=== PATIENT | female | born 2000 | race Two or more races ===

== ENCOUNTER 2022-10-09 15:09 | Emergency (ER) | payer BC ==
[~2022-10-09] VITALS: Ht 165.1 cm; Wt 73.4 kg
[2022-10-09 16:07] LABS: Basophils # (auto) 0.1 10 ^3/uL (0-0.2); Basophils % (auto) 0.5 % (0.0-2.0); Eosinophils # (auto) 0 10 ^3/uL (0-0.8); Eosinophils % (auto) 0.3 % (0.0-7.0); Hematocrit 43.5 % (36.0-46.0); Hemoglobin 14.4 g/dL (12.2-16.2); Lymphocytes # (auto) 2.2 10 ^3/uL (0.4-5.4); Lymphocytes % (auto) 17.4 % (10.0-50.0); Mean Corpuscular Hemoglobin 27.4 pg (28.0-32.0); Mean Corpuscular Hgb Conc. 33.1 g/dL (32.0-36.0); Mean Corpuscular Volume 82.8 fL (80.0-100.0); Monocytes # (auto) 1.4 10 ^3/uL (0-1.3); Monocytes % (auto) 10.9 % (0.0-12.0); Neutrophils # (auto) 8.8 10 ^3/uL (1.6-8.6); Neutrophils % (auto) 70.9 % (37.0-80.0); Nucleated Red Blood Cells % 0.1 %; Red Blood Cells 5.25 10^6/uL (4.0-5.20); Red Cell Distribution Width 16.6 % (11.8-14.3); White Blood Cell 12.5 10^3/uL (4.4-10.8)
[2022-10-09 16:19] LABS: Calcium 9.3 mg/dL (8.5-10.1); Potassium 4.1 mmol/L (3.5-5.1)
[2022-10-09 16:23] LABS: BUN/Creatinine Ratio 11.1 (10.0-20.0); Total Protein 7.8 g/dL (6.4-8.2)
[2022-10-09] MEDS ORDERED: HYDROcodone-ACET 10/325MG TAB PO ONE (19:15)
[2022-10-09] MEDS ORDERED: HYDROmorphone HCL 2 MG/ML VL/or syr IM ONE ×2 (19:30→23:30)
[2022-10-09 19:33] VITALS: PULSE 96; RESP 16; O2SAT 97
[2022-10-09 19:39] LABS: Urine Bacteria NONE SEEN /hpf (None Seen); Urine Blood Negative /uL (Negative); Urine Clarity Clear (Clear); Urine Color Yellow (Yellow); Urine Mucus FEW (None Seen); Urine Protein, UAD 1+ (Negative); Urine Urobilinogen Normal (Negative); Urine WBC 1 /hpf (0 - 5); Urine pH 5.5 (5.0-8.0)
[2022-10-09] MEDS ORDERED: HYDR-4798 PO ×2 (23:16)
[2022-10-09] MEDS ORDERED: MET500T PO (23:16)
[2022-10-09] MEDS ORDERED: ZOFR4T PO (23:16)
[2022-10-09] MEDS ORDERED: HYDR-3651 OR (23:23)
[2022-10-10 00:02] VITALS: TEMP 99.3; O2SAT 99
[2022-10-10 00:22] VITALS: BP 119/78; PULSE 92; RESP 18
== END 2022-10-10 00:23 | disposition home or self-care (01) ==
LOC: ER 15:09
DX: N83.209 Unspecified ovarian cyst, unspecified side (principal); Z88.6 Allergy status to analgesic agent; Z79.899 Other long term (current) drug therapy; Z90.49 Acquired absence of other specified parts of digestive tract; Z98.890 Other specified postprocedural states
CPT/HCPCS: 36415; 74176; 76830; 76856; 80053; 81001; 81025; 85025; 96372; 99285; J1170